=== PATIENT | female | born 1985 | race Two or more races ===

== ENCOUNTER 2017-12-17 16:21 | Emergency (ER) | payer SELFPAY ==
[2017-12-17 16:46] LABS: URINE HCG POC HCG NEGATIVE (Negative)
[2017-12-17] MEDS: HYDROcodone/APAP 5/325MG 1 TAB TABLET PO (16:58)
[2017-12-17] MEDS: NAPROXEN 500 MG TABLET PO (16:59)
[2017-12-17] MEDS: predniSONE 10 MG TABLET PO (16:59)
== END 2017-12-17 17:05 | disposition home or self-care (01) ==
LOC: ER 17:05
DX: R59.0 Localized enlarged lymph nodes (principal)
CPT/HCPCS: 81025; 99284; J7512